=== PATIENT | female | born 1965 | race Caucasian/White ===

== ENCOUNTER 2020-11-05 20:54 | Emergency (ER) | payer BC ==
[2020-11-05] MEDS ORDERED: LORazepam 0.5 MG Tab PO ONE (20:55)
[2020-11-05] MEDS ORDERED: Nitroglycerin 0.4 MG Tab.SL SL ONE (20:59)
[2020-11-05 21:20] VITALS: BP 134/82; PULSE 69
[2020-11-05 21:30] LABS: ANION GAP 14.4 mEq/L (7-13); CHLORIDE,CL 104 mmol/L (98-107); SODIUM,NA 142 mmol/L (136-145)
[2020-11-05] MEDS ORDERED: GI Cocktail Oral Solution 30 ML PO ONE (21:57)
--- NOTE | 2020-11-06 00:55 | EDM.PDOC ---
ED HPI GENERAL MEDICAL PROBLEM - General Chief Complaint: Chest Pain Stated Complaint: HEART ATTACK SYMPTOMS Time Seen by Provider: 11/05/20 21:05 Source of Information: Reports: Patient, RN, RN Notes Reviewed History Limitations: Reports: No Limitations - History of Present Illness INITIAL COMMENTS - FREE TEXT/NARRATIVE: Patient presents to the ED via personal vehicle with complaints of chest pain. The patient reports the chest pain began at approximately 2000 this evening and has maintained since that time. She states the pain is localized to her left chest; it does not radiate. She has not taken any analgesics for the pain but did take two doses of ASA 81mg. She denies experiencing pain similar to this in the past. She denies a history of hypertension, hyperlipidemia, DM, and cardiac events. She denies recent illness, fever, shaking chills, cough, sore throat, palpitations, shortness of breath, nausea, vomiting or dysuria. She does attest to mild diarrhea that began today. The patient does attest to high levels of stress events over the past several months; she is currently home alone while her is with her son at [facility] for surgery tomorrow. She denies history of tobacco or recreational drug use. She states she drinks alcohol socially and does not remember when her last drink was. 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 shoulder Social & Family History - Tobacco Use Tobacco Use Status *Q: Never Tobacco User Second Hand Smoke Exposure: No - Caffeine Use Caffeine Use: Reports: None - Alcohol Use Date of Last Drink: 11/04/20 - Recreational Drug Use Recreational Drug Use: No ED ROS GENERAL - Review of Systems Review Of Systems: Comprehensive ROS is negative, except as noted in HPI. ED EXAM, GENERAL - Physical Exam Exam: See Below Exam Limited By: No Limitations General Appearance: Alert, Anxious, Mild Distress (Chest pain) Eye Exam: Bilateral Eye: EOMI, Normal Inspection, PERRL (3mm) Throat/Mouth: Normal Inspection, Normal Oropharynx, Normal Voice, No Airway Compromise Head: Atraumatic, Normocephalic Neck: Normal Inspection, Supple, Non-Tender, Full Range of Motion. No: Lymphadenopathy (L), Lymphadenopathy (R) Respiratory/Chest: No Respiratory Distress, Lungs Clear, Normal Breath Sounds, No Accessory Muscle Use, Chest Non-Tender Cardiovascular: Normal Peripheral Pulses, Regular Rate, Rhythm, No Edema, No Gallop, No JVD, No Murmur, No Rub Peripheral Pulses: 2+: Radial (L), Radial (R) GI/Abdominal: Normal Bowel Sounds, Soft, Non-Tender, No Distention, No Mass, Pelvis Stable (Female) Exam: Deferred Rectal (Female) Exam: Deferred Back Exam: Normal Inspection, Full Range of Motion Extremities: Normal Inspection, Normal Range of Motion, Non-Tender, Normal Capillary Refill, No Pedal Edema Neurological: Alert, Oriented, CN II-XII Intact, Normal Cognition, Normal Gait, No Motor/Sensory Deficits Psychiatric: Normal Affect, Normal Mood Skin Exam: Warm, Dry, Intact, Normal Color, No Rash. No: Ecchymosis, Erythema, Jaundice, Mottled, Pallor, Petechiae #1 Interpretation EKG Date: 11/05/20 Time: 21:02 Rhythm: NSR Rate (Beats/Min): 74 [place]: Normal P-Wave: Present QRS: Normal ST-T: Normal QT: Normal VT/PQ Interval: 0.15 Comparison: NA - No Prior EKG EKG Interpretation Comments: NSR; No evidence of acute myocardial ischemia Course - Vital Signs Last Recorded V/S: Last Vital Signs Temp 96.2 F L 11/05/20 21:19 Pulse 69 11/05/20 21:19 Resp 14 11/05/20 21:19 BP 134/82 11/05/20 21:19 Pulse Ox 100 11/05/20 21:19 - Orders/Labs/Meds Orders: Active Orders 24 hr Category Date Time Status EKG Documentation Completion [RC] ROUTINE Care 11/06/20 01:00 Active EKG Documentation Completion [RC] STAT Care 11/05/20 20:56 Active Labs: Laboratory Tests 11/05/20 11/05/20 11/05/20 Range/Units 21:03 21:03 21:03 WBC 7.1 (5.0-10.0) 10^3/uL RBC 4.79 (4.2-5.4) 10^6/uL Hgb 12.9 (12.0-16.0) g/dL Hct 38.7 (37.0-47.0) % MCV 80.8 (80-100) fL MCH 26.9 L (27.0-34.0) pg MCHC 33.3 (33.0-35.0) g/dL Plt Count 234 (150-450) 10^3/uL Neut % (Auto) 50.4 (42.2-75.2) % Lymph % (Auto) 39.7 (20.5-50.1) % [place] % (Auto) 6.8 (2-8) % Eos % (Auto) 2.7 (1.0-3.0) % Baso % (Auto) 0.4 (0.0-1.0) % Sodium 142 (136-145) mmol/L Potassium 3.4 L (3.5-5.1) mmol/L Chloride 104 (98-107) mmol/L Carbon Dioxide 27 (21-32) mmol/L Anion Gap 14.4 H (7-13) mEq/L BUN 13 (7-18) mg/dL Creatinine 0.77 (0.55-1.02) mg/dL Est Cr Clr Drug Dosing 65.29 mL/min Estimated GFR (MDRD) > 60 BUN/Creatinine Ratio 16.9 (No establ ref range) Glucose 103 H (74-99) mg/dL Lactic Acid 1.3 (0.4-2.0) mmol/L Calcium 8.6 (8.5-10.1) mg/dL Magnesium 1.9 (1.8-2.4) mg/dL Total Bilirubin 0.5 (0.2-1.0) mg/dL AST 13 L (15-37) U/L ALT 21 (14-59) U/L Alkaline Phosphatase 93 (46-116) U/L Troponin I < 0.017 (0.000-0.056) ng/mL C-Reactive Protein < 0.2 (0.0-0.9) mg/dL B-Natriuretic Peptide 32 (0-100) pg/ml Total Protein 7.9 (6.4-8.2) g/dL Albumin 3.8 (3.4-5.0) g/dL Globulin 4.1 Albumin/Globulin Ratio 0.9 Amylase (25-115) U/L Lipase (73-393) U/L Urine Color (YELLOW) Urine Appearance (CLEAR) Urine pH (5.0-9.0) Ur Specific [place] (1.005-1.030) Urine Protein (NEGATIVE) Urine Glucose (UA) (NEGATIVE) Urine Ketones (NEGATIVE) Urine Occult Blood (NEGATIVE) Urine Nitrite (NEGATIVE) Urine Bilirubin (NEGATIVE) Urine Urobilinogen (0.2-1.0) mg/dL Ur Leukocyte Esterase (NEGATIVE) Urine Opiates Screen (NEGATIVE) Ur Oxycodone Screen (NEGATIVE) Urine Methadone Screen (NEGATIVE) Ur Barbiturates Screen (NEGATIVE) U Tricyclic Antidepress (NEGATIVE) Ur Phencyclidine Scrn (NEGATIVE) Ur Amphetamine Screen (NEGATIVE) U Methamphetamines Scrn (NEGATIVE) Urine MDMA Screen (NEGATIVE) U Benzodiazepines Scrn (NEGATIVE) Urine Cocaine Screen (NEGATIVE) U Marijuana (THC) Screen (NEGATIVE) Ethyl Alcohol < 3 (0) mg/dL 11/05/20 11/05/20 11/05/20 Range/Units 21:03 21:03 22:00 WBC (5.0-10.0) 10^3/uL RBC (4.2-5.4) 10^6/uL Hgb (12.0-16.0) g/dL Hct (37.0-47.0) % MCV (80-100) fL MCH (27.0-34.0) pg MCHC (33.0-35.0) g/dL Plt Count (150-450) 10^3/uL Neut % (Auto) (42.2-75.2) % Lymph % (Auto) (20.5-50.1) % Fre[place] % (Auto) (2-8) % Eos % (Auto) (1.0-3.0) % Baso % (Auto) (0.0-1.0) % Sodium (136-145) mmol/L Potassium (3.5-5.1) mmol/L Chloride (98-107) mmol/L Carbon Dioxide (21-32) mmol/L Anion Gap (7-13) mEq/L BUN (7-18) mg/dL Creatinine (0.55-1.02) mg/dL Est Cr Clr Drug Dosing mL/min Estimated GFR (MDRD) BUN/Creatinine Ratio (No establ ref range) Glucose (74-99) mg/dL Lactic Acid (0.4-2.0) mmol/L Calcium (8.5-10.1) mg/dL Magnesium (1.8-2.4) mg/dL Total Bilirubin (0.2-1.0) mg/dL AST (15-37) U/L ALT (14-59) U/L Alkaline Phosphatase (46-116) U/L Troponin I (0.000-0.056) ng/mL C-Reactive Protein (0.0-0.9) mg/dL B-Natriuretic Peptide (0-100) pg/ml Total Protein (6.4-8.2) g/dL Albumin (3.4-5.0) g/dL Globulin Albumin/Globulin Ratio Amylase 31 (25-115) U/L Lipase 107 (73-393) U/L Urine Color Yellow (YELLOW) Urine Appearance Clear (CLEAR) Urine pH 6.0 (5.0-9.0) Ur Specific [place] >= 1.030 (1.005-1.030) Urine Protein Negative (NEGATIVE) Urine Glucose (UA) Negative (NEGATIVE) Urine Ketones Negative (NEGATIVE) Urine Occult Blood Negative (NEGATIVE) Urine Nitrite Negative (NEGATIVE) Urine Bilirubin Negative (NEGATIVE) Urine Urobilinogen 0.2 (0.2-1.0) mg/dL Ur Leukocyte Esterase Negative (NEGATIVE) Urine Opiates Screen (NEGATIVE) Ur Oxycodone Screen (NEGATIVE) Urine Methadone Screen (NEGATIVE) Ur Barbiturates Screen (NEGATIVE) U Tricyclic Antidepress (NEGATIVE) Ur Phencyclidine Scrn (NEGATIVE) Ur Amphetamine Screen (NEGATIVE) U Methamphetamines Scrn (NEGATIVE) Urine MDMA Screen (NEGATIVE) U Benzodiazepines Scrn (NEGATIVE) Urine Cocaine Screen (NEGATIVE) U Marijuana (THC) Screen (NEGATIVE) Ethyl Alcohol (0) mg/dL 11/05/20 11/06/20 Range/Units 22:00 01:03 WBC (5.0-10.0) 10^3/uL RBC (4.2-5.4) 10^6/uL Hgb (12.0-16.0) g/dL Hct (37.0-47.0) % MCV (80-100) fL MCH (27.0-34.0) pg MCHC (33.0-35.0) g/dL Plt Count (150-450) 10^3/uL Neut % (Auto) (42.2-75.2) % Lymph % (Auto) (20.5-50.1) % [place] % (Auto) (2-8) % Eos % (Auto) (1.0-3.0) % Baso % (Auto) (0.0-1.0) % Sodium (136-145) mmol/L Potassium (3.5-5.1) mmol/L Chloride (98-107) mmol/L Carbon Dioxide (21-32) mmol/L Anion Gap (7-13) mEq/L BUN (7-18) mg/dL Creatinine (0.55-1.02) mg/dL Est Cr Clr Drug Dosing mL/min Estimated GFR (MDRD) BUN/Creatinine Ratio (No establ ref range) Glucose (74-99) mg/dL Lactic Acid (0.4-2.0) mmol/L Calcium (8.5-10.1) mg/dL Magnesium (1.8-2.4) mg/dL Total Bilirubin (0.2-1.0) mg/dL AST (15-37) U/L ALT (14-59) U/L Alkaline Phosphatase (46-116) U/L Troponin I < 0.017 (0.000-0.056) ng/mL C-Reactive Protein (0.0-0.9) mg/dL B-Natriuretic Peptide (0-100) pg/ml Total Protein (6.4-8.2) g/dL Albumin (3.4-5.0) g/dL Globulin Albumin/Globulin Ratio Amylase (25-115) U/L Lipase (73-393) U/L Urine Color (YELLOW) Urine Appearance (CLEAR) Urine pH (5.0-9.0) Ur Specific [place] (1.005-1.030) Urine Protein (NEGATIVE) Urine Glucose (UA) (NEGATIVE) Urine Ketones (NEGATIVE) Urine Occult Blood (NEGATIVE) Urine Nitrite (NEGATIVE) Urine Bilirubin (NEGATIVE) Urine Urobilinogen (0.2-1.0) mg/dL Ur Leukocyte Esterase (NEGATIVE) Urine Opiates Screen Negative (NEGATIVE) Ur Oxycodone Screen Negative (NEGATIVE) Urine Methadone Screen Negative (NEGATIVE) Ur Barbiturates Screen Negative (NEGATIVE) U Tricyclic Antidepress Negative (NEGATIVE) Ur Phencyclidine Scrn Negative (NEGATIVE) Ur Amphetamine Screen Negative (NEGATIVE) U Methamphetamines Scrn Negative (NEGATIVE) Urine MDMA Screen Negative (NEGATIVE) U Benzodiazepines Scrn Negative (NEGATIVE) Urine Cocaine Screen Negative (NEGATIVE) U Marijuana (THC) Screen Negative (NEGATIVE) Ethyl Alcohol (0) mg/dL - Re-Assessments/Exams Free Text/Narrative Re-Assessment/Exam: 11/06/20 Nitro 0.4SL ordered for chest pain of 8. Patient verbalized improvement in chest pain following Nitroglycerin. EKG WNL, no evidence of ischemia. CBC unremarkable for acute processes, no evidence of infection or anemia. CMP unremarkable for acute processes; kidney and liver function WNL. Mild hypokalemia noted with a K of 3.4 Troponin WNL, no elevation. Tox and ETOH negative. UA WNL; no evidence of infection. Amylase and Lipase WNL. Discussed findings of lab work and examination discussed with patient. Given short period of time between initiation of chest pain and presentation to the ED, will monitor patient in extended stay to definitively r/o acute cardiac ischemia as cause for pain. Patient verbalized understanding and agreement with the plan of care. Patient states pain has returned; she rates it at a 6. Will attempt GI cocktail. Patient states GI cocktail alleviated pain. Patient moved to extended stay. Repeat troponin WNL; no elevation. Repeat EKG WNL, no changes from previous EKG. Discussed results with patient. She continues to attest to mild chest pain and is concerned it is anxiety. 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 Discussed need for follow up with her primary care provider. Red flag signs and symptoms which would warrant reev aluation discussed. Patient verbalized understanding and agreement with plan of care. Departure - Departure Time of Disposition: 01:41 Disposition: Home, Self-Care 01 Condition: Good Clinical Impression: Chest pain, atypical, Hypokalemia, Anxiety Instructions: Nonspecific Chest Pain, Adult, [id number], Managing Anxiety, Adult, Hypokalemia Forms: ED Department Discharge Additional Instructions: 1.) Follow up with your primary care provider regarding today's visit. 2.) Drink plenty of water to stay hydrated. 3.) You had a mild decrease in your potassium, increase your consumption of potassium-rich foods (spinach, bananas, broccoli, etc..) Sepsis Event Note (ED) - Evaluation Sepsis Screening Result: No Definite Risk - Focused Exam Vital Signs: Vital Signs Temp Pulse Resp BP BP Pulse Ox 11/05/20 21:19 96.2 F L 69 14 134/82 100 11/05/20 21:06 96.2 F L 87 16 160/95 H 96 11/05/20 21:05 157/96 H - My Orders Last 24 Hours: My Active Orders 11/05/20 20:56 EKG Documentation Completion [RC] STAT 11/06/20 01:00 EKG Documentation Completion [RC] ROUTINE - Assessment/Plan Last 24 Hours: My Active Orders 11/05/20 20:56 EKG Documentation Completion [RC] STAT 11/06/20 01:00 EKG Documentation Completion [RC] ROUTINE
[2020-11-06] MEDS ORDERED: LORazepam 0.5 MG Tab ONE (01:48)
== END 2020-11-06 02:05 | disposition home or self-care (01) ==
LOC: DL.ED 20:54
DX: F41.9 Anxiety disorder, unspecified (principal); E87.6 Hypokalemia; K21.9 Gastro-esophageal reflux disease without esophagitis; Z79.899 Other long term (current) drug therapy; Z91.048 Other nonmedicinal substance allergy status
CPT/HCPCS: 36415; 80053; 80305; 80307; 81003; 82150; 83605; 83690; 83735; 83880; 84484; 85025; 86140; 93005; 99285; A9270